=== PATIENT | male | born 1950 | race Caucasian/White ===

== ENCOUNTER 2017-04-10 04:07 | Observation (INO) | payer OTHER ==
[~2017-04-10] VITALS: Ht 188 cm; Wt 100.1 kg
[~2017-04-10 04:07] MED LIST: COUMADIN,JANTO2.5 MG PO; COUMADIN,JANTOVE5 MG PO; INDOCIN50 MG; NORVASC10 MG PO; OXYCODONE5 MG PO; PANCREASE PO
[2017-04-10 05:26] LABS: HEMATOCRIT 47.7 % (38.0-50.0); HEMOGLOBIN 16.9 G/DL (12.5-16.6); MCH 35.6 PG (29.0-34.0); MCHC 35.4 G/DL (30.0-36.0); MCV 100.4 FL (86-99); PLATELET COUNT 343 K/uL (156-360); RBC DIS.WIDTH-CV 11.7 % (11.8-14.6); RED BLOOD COUNT 4.75 M/uL (4.00-5.50); WHITE BLOOD COUNT 13.8 K/uL (4.1-10.2)
[2017-04-10 05:36] LABS: ALBUMIN 4.1 g/dL (3.2-4.8); CHLORIDE 108 mEq/L (99-109); POTASSIUM 3.8 mEq/L (3.7-5.4); SODIUM 138 mEq/L (136-147)
[2017-04-10 05:39] LABS: GLUCOSE 195 mg/dL (70-99); TOTAL PROTEIN 7.1 g/dL (6.4-8.3)
[2017-04-10 05:41] LABS: TOTAL BILIRUBIN 0.3 mg/dL (0.0-1.0)
[2017-04-10 05:42] LABS: ALKALINE PHOSPHATASE 67 IU/L (3-129); CREATININE 0.8 mg/dL (0.6-1.3); GFR ESTIMATE (CALCULATED) > 59 mL/min/ (58.99-99999)
[2017-04-10 05:43] LABS: UREA NITROGEN (BUN) 18 mg/dL (9-23)
[2017-04-10 05:44] LABS: AST (GOT) 34 IU/L (2-34)
[2017-04-10 05:45] LABS: ALT (GPT) 41 IU/L (3-49)
[2017-04-10] MEDS ORDERED: ZESTRIL40 MG PO (10:16)
[2017-04-10] MEDS ORDERED: XARELTO20 MG PO (10:17)
[2017-04-10] MEDS ORDERED: LEXAPRO10 MG PO (10:27)
[2017-04-10] MEDS ORDERED: MIRTAZAPINE7.5 MG PO (10:28)
[2017-04-10 17:44] VITALS: BP 142/80
[2017-04-10 19:00] VITALS: BP 141/87
[2017-04-11 01:24] VITALS: BP 144/81
[2017-04-11 06:09] LABS: HEMATOCRIT 41.3 % (38.0-50.0); MCH 34.5 PG (29.0-34.0); MCHC 34.1 G/DL (30.0-36.0); PLATELET COUNT 279 K/uL (156-360); RBC DIS.WIDTH-CV 11.9 % (11.8-14.6); RBC DIS.WIDTH-SD 44.5 % (39-53); RED BLOOD COUNT 4.09 M/uL (4.00-5.50); WHITE BLOOD COUNT 9.3 K/uL (4.1-10.2)
[2017-04-11 06:10] LABS: HEMOGLOBIN 14.1 G/DL (12.5-16.6)
[2017-04-11 10:08] VITALS: BP 133/84
[2017-04-11 11:58] VITALS: BP 139/87
[2017-04-11 15:10] VITALS: BP 116/63
[2017-04-11 20:55] VITALS: BP 133/82
[2017-04-11 23:53] VITALS: BP 122/67
[2017-04-12 06:05] LABS: BASOPHIL (%) 0.7 % (0-1); BASOPHIL COUNT 0.1 K/uL (0-0.1); EOSINOPHIL (%) 1.9 % (0-5); EOSINOPHIL COUNT 0.2 K/uL (0-0.3); HEMATOCRIT 44.5 % (38.0-50.0); HEMOGLOBIN 15.5 G/DL (12.5-16.6); IMMATURE GRANULOCYTE (%) 0.3 % (0.0-0.7); LYMPHOCYTE (%) 14.5 % (15-42); LYMPHOCYTE COUNT 1.3 K/uL (1.0-2.8); MCH 35.1 PG (29.0-34.0); MCHC 34.8 G/DL (30.0-36.0); MCV 100.9 FL (86-99); MONOCYTE (%) 8.2 % (3-12); MONOCYTE COUNT 0.7 K/uL (0-0.8); NEUTROPHIL (%) 74.4 % (45-76); NEUTROPHIL COUNT 6.7 K/uL (1.8-6.4); PLATELET COUNT 292 K/uL (156-360); RBC DIS.WIDTH-CV 11.6 % (11.8-14.6); RBC DIS.WIDTH-SD 43.6 % (39-53); RED BLOOD COUNT 4.41 M/uL (4.00-5.50)
[2017-04-12 06:23] LABS: CHLORIDE 104 MEQ/L (99-109); CREATININE 0.8 MG/DL (0.6-1.3); GFR ESTIMATE (CALCULATED) > 59 mL/min/ (58.99-99999); GLUCOSE 151 mg/dL (70-99); POTASSIUM 4.3 MEQ/L (3.7-5.4); SODIUM 141 MEQ/L (136-147); UREA NITROGEN (BUN) 15 mg/dL (9-23)
[2017-04-12 10:13] VITALS: BP 131/75
[2017-04-12] MEDS ORDERED: FLORASTOR250 MG PO (11:30)
[2017-04-12] MEDS ORDERED: AUGMENTIN875 MG PO (11:31)
[2017-04-12] MEDS ORDERED: PERCOCET 5/31 TABLET PO (11:32)
[2017-04-12 12:06] VITALS: BP 135/70
== END 2017-04-12 14:36 | disposition home or self-care (01) ==
LOC: EME 04:07 → EDOF 09:54 → 5WEST 09:54 → EDOF 09:54 → ENRESERV 09:57 → 5WEST 17:33
PROVIDERS: Hospitalist; Internal Medicine
DX: L03.113 Cellulitis of right upper limb (principal); I10 Essential (primary) hypertension; M79.89 Other specified soft tissue disorders; Z85.07 Personal history of malignant neoplasm of pancreas; I48.91 Unspecified atrial fibrillation; Z79.01 Long term (current) use of anticoagulants; Z88.5 Allergy status to narcotic agent
CPT/HCPCS: 73130; 80048; 80053; 85025; 85027; 87040; 87641; 93971; G0378; J0295; J2270; J7050